=== PATIENT | male | born 1960 | race Caucasian/White ===

== ENCOUNTER → 2018-11-05 | Outpatient (CLI) | payer BC ==
--- NOTE | 2018-11-06 09:33 | US ---
EXAM DESCRIPTION: Gall Bladder: ULTRASOUND. CLINICAL HISTORY: Right upper quadrant pain COMPARISON: None. TECHNIQUE: Transabdominal scanning: Arvizu-scale and Doppler modes. FINDINGS: Gallbladder: normal size, shape, echogenicity; no intraluminal stones or sludge. No fluid around the gallbladder. No wall thickening. 2.4 mm. Non-tender with transducer pressure. Common bile duct: caliber 8.1 mm within normal limits. Liver: Diffuse increased echogenicity; contour liver capsule smooth where seen. No fluid around the liver. Intrahepatic biliary ducts normal caliber. Doppler hepatopedal flow portal vein.. Long axis right lobe 14.9 cm. Pancreas: normal size and echogenicity. Prominent Duct measures 3 mm. Aorta: Proximal diameter 1.5 cm. Right kidney: Long axis is 9.5 cm. Normal cortical echogenicity with cortical thickness 9 mm. No hydronephrosis, no echogenic stones, no perirenal fluid. IMPRESSION: 1. Steatosis of the liver with no focal lesions. Normal vascular flow and duct caliber. Smooth capsule with no ascites. 2. Normal size and echogenicity of the pancreas with slightly dilated pancreatic duct. No focal mass. 3. Normal gallbladder and common bile duct. 4. Right kidney slightly small with thin cortex. Normal echogenicity with no hydronephrosis. Evaluate for renal disease. Normal caliber proximal aorta. Electronically signed by: Helio Jerry MD 11/06/2018 9:30 AM CDT
== END ==
LOC: LAB.O 09:29
PROVIDERS: ATTEND Nurse Practitioner Family
DX: K76.0 Fatty (change of) liver, not elsewhere classified (principal)

== ENCOUNTER → 2019-01-27 | Outpatient (CLI) | payer BC ==
--- NOTE | 2019-01-28 16:31 | MRI ---
EXAM DESCRIPTION: Brain w/wo Contrast: Magnetic Resonance Imaging. CLINICAL HISTORY: ACOUSTIC SCHWANNOMA, BENIGN NEOPLASM OF CRANIAL NERVES COMPARISON: None. TECHNIQUE: Diffusion axial imaging of the brain. Multiplanar high-field unit, multiple conventional sequences through the IACs, and the brain, before and after 1 mL per 5 kg gadolinium IV contrast. No adverse reactions. FINDINGS: 9.5 x 3.3 x 2.7 mm enhancing cylindrical mass involving the intracanalicular segment of the left vestibular portion of the 8th cranial nerve. Extending into the IAC fundus, with no fundal CSF cap. Abutting but not involving the cochlear nerve canal. The breanna falciformis is seen anteriorly on the sagittal image and mid-mass on the coronal image, which can indicate involvement of the superior and inferior branches. No abnormal FLAIR signal. No fluid in the mastoid air cells. Normal contour of the cerebellopontine angles with no mass, normal enhancement. Normal flow signal void in the major vessels of the [place] and venous sinuses. Pituitary gland occupies most of the sella compartment. Bony calvarium is intact. Base of the cerebellar tonsils is just above the foramen magnum. Anatomic variation of the sphenoid air cells with enlargement of the right sphenoid including the passage between the right sphenoid and the right maxillary antrum. The posterior sphenoid extends below the sella, abutting the right cavernous sinus, and extends almost to the posterior border of the clivus. Air-fluid level in the smaller right side sphenoid air cell and also in a left sphenoid air cell. Mucoperiosteal thickening bilateral maxillary antra. Scattered foci of hyperintense FLAIR and T2-weighted signal in the bilateral periventricular white matter and subcortical white matter in the gupta radiata and centrum semiovale. Normal signal in the midbrain, cerebral hemispheres.. Normal signal in the bilateral basal ganglia. No hemorrhage, no cerebral edema, no mass-effect. Normal signal in the brainstem and cerebellar hemispheres. No hemorrhage, no cerebral edema, no mass-effect. Concordance of the diffusion and non-diffusion sequences with no evidence of acute or subacute infarction. Cortical sulci are mildly prominent bilaterally for patient's age. Ventricles, and other CSF spaces, and the subdural spaces are unremarkable.No effacement or displacement. No midline shift. No extra-axial hemorrhage. IMPRESSION: 1. Acoustic schwannoma, cylindrical shape, and long axis 9.5 mm, with enhancement involving the IAC fundus and abutting the cochlear nerve canal. No IAC CSF fundal cap. Unable to determine if originating from the superior or inferior branch of the vestibular nerve. No cerebellar pontine angle mass. 2. Minimal bilateral white matter changes in the gupta radiata and centrum semiovale, most likely age-related/secondary to cerebral microvascular disease. 3. Anatomic variation of enlarged right sphenoid air cell which extends from the right posterior clivus to the lateral wall abutting the right cavernous sinus, extending to an enlarged ostium into the right maxillary antrum. Bilateral chronic thickening in the antra. Acute sinusitis with air-fluid levels in the left sphenoid air cell and a smaller right sphenoid air cell. Electronically signed by: Helio Jerry MD 01/28/2019 4:29 PM CDT
== END ==
LOC: MRI 13:46
PROVIDERS: ATTEND Emergency Medicine
DX: D33.3 Benign neoplasm of cranial nerves (principal); R90.82 White matter disease, unspecified; J01.30 Acute sphenoidal sinusitis, unspecified; J34.89 Other specified disorders of nose and nasal sinuses

== ENCOUNTER → 2020-05-12 | Outpatient (CLI) | payer BC ==
--- NOTE | 2020-05-12 12:48 | RAD ---
EXAM DESCRIPTION: Chest,2 Views CLINICAL HISTORY: 60 years Male, WHEEZING COMPARISON: December 07, 2015 FINDINGS: 2 views/radiographs Heart size and pulmonary vessels are within normal limits. There is no pneumothorax or pleural effusion. The left lung is clear. There is a focal right perihilar airspace opacity which has increased from the comparison examination. The soft tissues are unremarkable. No acute osseous findings. IMPRESSION: Focal right perihilar airspace opacity, increased from the comparison examination. This finding may reflect artifact from overlapping hilar structures, however other etiologies are not excluded. Recommend CT chest for further evaluation. Electronically signed by: Bird Martinez MD 05/12/2020 12:46 PM [employer]
== END ==
LOC: RAD 12:24
PROVIDERS: ATTEND Nurse Practitioner Family
DX: R06.2 Wheezing (principal); R91.8 Other nonspecific abnormal finding of lung field